=== PATIENT | female | born 1965 | race African-American/Black ===

== ENCOUNTER 2017-09-24 18:55 | Emergency (ER) | payer OTHER ==
[~2017-09-24] VITALS: Ht 170.2 cm; Wt 98.0 kg
[~2017-09-24 18:55] MED LIST: GLUCTAB PO; HYDR12.56 PO; LISI-360 PO; LORC10TA PO; METR-1 PO; SULF-154 PO
[2017-09-24 19:03] VITALS: BP 177/102; PULSE 116; RESP 14; TEMP 98.7; O2SAT 99
[2017-09-24] MEDS ORDERED: AMLO10TA2 PO (20:28)
[2017-09-24] MEDS ORDERED: METF500T PO (20:28)
[2017-09-24] MEDS ORDERED: HYDR12.57 PO (20:28)
--- NOTE | 2017-09-24 20:40 | PD ---
HPI Chief Complaint: Cold / Flu Symptoms Time Seen by Provider: 20:28 Travel History International Travel<30 days: No Contact w/Intl Traveler<30days: No Traveled to known affect area: No History of Present Illness HPI The patient was seen and examined in the presence of the nurse. This patient complains of 2 days of cough and congestion and runny nose and body aches. Symptom severity is moderate. No alleviating factors. She is not short of breath. PFSH Past Medical History Blood Disorders: No Cancer: No Diabetes: No Diminished Hearing: No GERD: Yes Genitourinary: No Hypertension: Yes (WHEN THYROID WAS UNTREATED) Immune Disorder: No Musculoskeletal: No Neurologic: No Psychiatric: No Reproductive: Yes (FIBROIDS) Respiratory: No Immunizations Current: Yes Thyroid Disease: Yes (hx of" hyperthyroid") ?: Not : 3 Para: 3 Ectopic : Yes (1986 and 1988) Past Surgical History AICD: No Arteriovenous Shunt: No Gynecologic Surgery: Yes Hysterectomy: Yes (PARTIAL) Insulin Pump: No Joint Replacement: No Pacemaker: No Social History Alcohol Use: No Tobacco Use: No Substance Use: No Allergies-Medications (Allergen,Severity, Reaction): Coded Allergies: methimazole (Unverified Allergy, Severe, HIVES, 09/24/17) Reported Meds & Prescriptions Reported Meds & Active Scripts Active Reported Amlodipine (Amlodipine Besylate) 10 Mg Tab 10 Mg PO DAILY Hydrochlorothiazide 12.5 Mg Cap 12.5 Mg PO DAILY Metformin (Metformin HCl) 500 Mg Tab 500 Mg PO DAILY With a meal Review of Systems Cardiovascular: No: Chest Pain or Discomfort Respiratory: Positive: Cough Gastrointestinal: No: Abdominal Pain Musculoskeletal: Positive: Myalgias Physical Exam Narrative GENERAL: Well-nourished, well-developed patient. SKIN: Focused skin assessment warm/dry. HEAD: Normocephalic. EYES: No scleral icterus. No injection or drainage. NECK: Supple, trachea midline. No JVD or lymphadenopathy. CARDIOVASCULAR: Regular rate and rhythm without murmurs, gallops, or rubs. RESPIRATORY: Breath sounds equal bilaterally. No accessory muscle use. GASTROINTESTINAL: Abdomen soft, non-tender, nondistended. MUSCULOSKELETAL: No cyanosis, or edema. BACK: Nontender without obvious deformity. No CVA tenderness. Data Data Last Documented VS Vital Signs Date Time Temp Pulse Resp B/P (MAP) Pulse Ox O2 Delivery O2 Flow Rate FiO2 09/24/17 19:03 98.7 116 14 177/102 (127) 99 Room Air Orders Orders Influenzae A/B Antigen (09/24/17 19:26) MDM Medical Decision Making Medical Screen Exam Complete: Yes Emergency Medical Condition: Yes Medical Record Reviewed: Yes Differential Diagnosis Flu syndrome, rhinitis, bronchitis Narrative Course I have reviewed the patient's electronic medical record. Patient's influenza A testing is positive Supportive care discussed. Stable for outpatient follow-up Diagnosis Primary Impression: Influenza A Additional Instructions: The patient was advised to follow up with their physician and return if they worsen. Med/Other Pt SpecificInfo: Other Disposition: 01 DISCHARGE HOME Condition: Stable Nigel Baumann MD Sep 24, 2017 20:40
== END 2017-09-24 21:08 | disposition home or self-care (01) ==
LOC: NEPD 18:55
DX: J10.1 Influenza due to other identified influenza virus with other respiratory manifestations (principal)
CPT/HCPCS: 87804; 99283

== ENCOUNTER → 2017-12-09 | Outpatient (CLI) | payer OTHER ==
[~2017-12-09] VITALS: Ht 170.2 cm; Wt 96.6 kg
[~2017-12-09] MED LIST changes: +AMLO10TA2 PO; +CHLORHEXIDINE GLUCONATE 2 % 1 PACK (2 CLOTHS) TOPICAL PRN; -GLUCTAB PO; -HYDR12.56 PO; +HYDR12.57 PO; +LACTATED RINGER'S 1000 ML IV PRN; +LIDOCAINE HCL 1% PF 5 ML SYRINGE OTHER ONE; -LISI-360 PO; -LORC10TA PO; +METF500T PO; +METOPROLOL TARTRATE 25 MG TAB PO PRN; -METR-1 PO; +POVIDONE IODINE 5% (ANTISEPSIS KIT) 4 APPLICATIONS EACH NARE PRN; +PROPOFOL 200 MG/20 ML AMP IV ONE; +SODIUM CHLORID 0.9% 500 ML IV PRN; -SULF-154 PO
[2017-12-09 16:00] VITALS: BP 111/77; PULSE 76; RESP 16; TEMP 97; O2SAT 100
--- NOTE | 2017-12-09 17:02 | MR ---
cc: Tapan Abreu MD DATE: 12/09/2017 PROCEDURE PERFORMED: Colonoscopy. INDICATION FOR PROCEDURE: Screening colonoscopy, average risk. Photographs were taken. No biopsies. Premedication administered by Anesthesiology. Monitoring was constant pulse oximetry, EKG, blood pressure monitor. DESCRIPTION OF PROCEDURE: After informed consent was obtained, and the procedure, risks and benefits were explained, including risks of bleeding, sepsis, perforation, risks of anesthesia, the patient was placed in left lateral position. The video colonoscope was inserted in rectum, passed to the cecum in the usual fashion. The scope was then gradually withdrawn. Mucosa throughout appeared to be grossly normal. There was no evidence of inflammatory changes or colonic polyps or any other pathology. The mucosa appeared to be normal throughout. In the rectum, the scope was retroflexed. Tiny hemorrhoids were noted. No active bleeding was seen. The patient tolerated the procedure well. No immediate complications were noted. IMPRESSION: Unremarkable colonoscopy to the cecum. PLAN: Recommend repeat colonoscopy in 10 years for average risk screening. Follow up with PCP. We will discuss the findings with the patient. MD MINESH Barry/DEMETRI , 03:57 PM , 05:01 PM
--- NOTE | 2017-12-09 17:16 | EKG ---
Date Performed: 12/09/2017 Time Performed: 13:51:19 PTAGE: 52 years EKG: Sinus rhythm WITH FIRST DEGREE AV BLOCK INFERIOR MYOCARDIAL INFARCTION, OLD NONSPECIFIC ST-T CHANGES ABNORMAL ECG PREVIOUS TRACING : 08/07/2008 16.01 Since the previous tracing, no significant change noted DOCTOR: Levi Chamberlain Interpretating Date/Time 12/09/2017 17:14:59
== END ==
LOC: HSDC 13:03
PROVIDERS: ATTEND Internal Medicine Gastroenterology
DX: Z12.11 Encounter for screening for malignant neoplasm of colon (principal); K64.9 Unspecified hemorrhoids; I44.0 Atrioventricular block, first degree; I25.2 Old myocardial infarction
CPT/HCPCS: 00812; 45378; 93005; J7120